=== PATIENT | male | born 1995 | race African-American/Black ===

== ENCOUNTER 2016-06-26 20:22 | Emergency (ER) | payer OTHER ==
[~2016-06-26] VITALS: Ht 185.4 cm; Wt 79.4 kg
[~2016-06-26 20:22] MED LIST: ULTRAM50 M1 PO
[2016-06-26 20:26] VITALS: BP 164/91
[2016-06-26] MEDS ORDERED: AUGMENTIN 875-1 EACH PO (20:41)
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
== END 2016-06-26 20:45 ==
LOC: ERH 20:22
DX: L03.114 Cellulitis of left upper limb (principal); Y04.1XXA Assault by human bite, initial encounter
CPT/HCPCS: J3490

== ENCOUNTER 2016-10-01 16:09 | Emergency (ER) | payer OTHER ==
[~2016-10-01] VITALS: Ht 185.4 cm; Wt 79.4 kg
[~2016-10-01 16:09] MED LIST changes: +AUGMENTIN 875-1 EACH PO
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
--- NOTE | 2016-10-01 17:45 | CT SCAN REPORT ---
EXAMINATION: NONCONTRAST HEAD CT NONCONTRAST CERVICAL SPINE CT INDICATION INFORMATION: Fall with loss of consciousness. Head strike. COMPARISON: None TECHNIQUE: Separate noncontrast CT examinations of the head and cervical spine were performed. Coronal and sagittal images were created for each examination at the technologist workstation. FINDINGS: Head: There is no evidence of acute intracranial hemorrhage or territorial infarction. No abnormal mass effect or midline shift is seen. Simmons to white matter differentiation is well preserved. No extra-axial fluid collections are identified. No hydrocephalus. No significant volume loss. There is no abnormal attenuation within the brain parenchyma. The osseous structures and soft tissues are normal. The mastoid air cells and visualized portions of the paranasal sinuses are well aerated. Cervical spine: There is anatomic alignment of the vertebral bodies and posterior elements. The atlantoaxial and atlantooccipital articulations are intact. Vertebral body heights and intervertebral disc spaces are maintained. No evidence of acute fracture. No prevertebral soft tissue swelling. Visualized portions of the lung apices are unremarkable. The thyroid gland is unremarkable. IMPRESSION: 1. No acute intracranial findings. 2. No cervical spine fracture or malalignment.
[2016-10-01 18:06] VITALS: BP 155/83
--- NOTE | 2016-10-01 18:44 | RADIOLOGY REPORT ---
EXAMINATION: Left shoulder, left elbow, left wrist and left hand. CLINICAL INFORMATION: Status post fall with left upper extremity pain. COMPARISON: None TECHNIQUE: Left shoulder 3 views. Left elbow 4 views. Left wrist 4 views. Left hand 3 views. FINDINGS: Left shoulder: The glenohumeral joint is intact. There is subtle lucency seen along the acromion on Y view which could be secondary to recent ossification of growth plate. If patient is tender in this region a CT could be obtained. However there is no soft tissue swelling seen. Left elbow: There is no visible acute fracture, dislocation or soft tissue abnormality. The anterior and posterior fat pad sign is normal. Left wrist: There is no visible acute fracture, dislocation or soft tissue abnormality. Left hand: There is no visible acute fracture or dislocation. No soft tissue swelling seen. IMPRESSION: Subtle lucency along the left acromion could be recent ossification of growth plate if patient is tender in this region a CT can be obtained. However there is no soft tissue swelling. The glenohumeral joint space is normal. Unremarkable left elbow exam. Unremarkable left wrist exam. Unremarkable left hand exam.
[2016-10-01] MEDS ORDERED: TRAMADOL HCL50 M1 PO (18:49)
== END 2016-10-01 19:21 ==
LOC: ERH 16:09
DX: S09.90XA Unspecified injury of head, initial encounter (principal); M79.602 Pain in left arm; M54.2 Cervicalgia; W11.XXXA Fall on and from ladder, initial encounter; Y93.9 Activity, unspecified; Y92.9 Unspecified place or not applicable
CPT/HCPCS: 73030-LT; 73080-LT; 73110-LT; 73130-LT; J0131

== ENCOUNTER 2016-10-23 11:46 | Emergency (ER) | payer OTHER ==
[~2016-10-23] VITALS: Ht 185.4 cm; Wt 77.1 kg
[~2016-10-23 11:46] MED LIST changes: +TRAMADOL HCL50 M1 PO
[2016-10-23] MEDS ORDERED: NAPROSYN500 M1 PO (12:14)
[2016-10-23] MEDS ORDERED: CYCLOBENZAPRINE5 M2 PO (12:14)
--- NOTE | 2016-10-23 12:14 | ED NECK/BACK PAIN COMPLAINT ---
History of Present Illness General Chief Complaint: General Adult Stated Complaint: PT IS HERE FOR HEADACHE AND LOWER BACK PAIN Source: patient Exam Limitations: no limitations Allergies Coded Allergies: mushroom (HIVES 10/01/16) soap (CASSANDRA SOAP HIVES 10/01/16) Triage Note: PT STATES HE HAS HAD REEVES AND LOWER BACK PAIN FOR THE PAST 3 DAYS. PT HAS NOT TAKEN ANYTHING FOR THE PAIN Triage Nurses Notes Reviewed? yes HPI: This patient is a 21-year-old male who presented to the emergency department today for evaluation of headache and lower back pain. The patient reported that approximately 3 weeks ago he fell off a ladder. At that time he had a CT scan of the head and neck which was unremarkable. He reported that 3 days ago he started getting intermittent headaches that get up to a 7 out of 10, are throbbing, and, "all over my head." He reports that he only at night. The patient also reported that 3 days ago he started having lower back pain across his lower back and worse at night. This pain gets up to an 8 out of 10, is sharp, nonradiating. He denied any numbness or tingling in his extremities. Pain has been intermittent. The patient did not try taking any medication for the pain. He denied any strenuous activity or heavy lifting. He denied any bowel or bladder incontinence. No saddle paresthesia. He denied any fevers, chills, chest pain, difficult breathing, abdominal pain, nausea, vomiting, or any urinary symptoms. (SINDI GORE,CEZAR) Vital Signs & Intake/Output Vital Signs & Intake/Output ED Intake and Output 10/24 0000 05 1200 Intake Total Output Total Balance Patient 170 lb Weight Weight Reported by Patient Measurement Method Reconcile Medications Cyclobenzaprine HCl 5 MG TABLET 1 TAB PO TIDPRN PRN muscle spasms Naproxen (Naprosyn) 500 MG TABLET 1 TAB PO BID PRN pain and inflammation (NIK PALMA,KOLBY) Past History Travel History Traveled to [place] past 21 day No Medical History Any Pertinent Medical History? 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 No (CEZAR DELONG PA-C) Review of Systems Review of Systems Constitutional: Reports: no symptoms. Eyes: Reports: no symptoms. Ears, Nose, Throat, Mouth: Reports: no symptoms. Respiratory: Reports: no symptoms. Cardiovascular: Reports: no symptoms. Gastrointestinal/Abdominal: Reports: no symptoms. Musculoskeletal: Reports: see HPI. Skin: Reports: no symptoms. Neurological/Psychological: Reports: see HPI. All Other Systems: Reviewed and Negative (CEZAR DELONG PA-C) Physical Exam Physical Exam Neck: normal inspection, supple, full range of motion, normal alignment, no midline tenderness Comments: Well-developed well-nourished person in no acute distress HEENT: Normal EENT exam, head normocephalic/atraumatic PERRLA bilaterally Back: Normal gait. Good straight leg raise bilaterally. No midline tenderness and mild right-sided lumbar paraspinal musculature tenderness Cardiovascular: Regular rate and rhythm with no murmurs Respiratory: No respiratory distress. Speaking in full sentences Extremity: Normal and equal pulses Neuro: Alert oriented x3, motor sensory normal, cranial nerves II through XII grossly intact. No focal neurologic deficits Skin: No appreciable rash on exposed skin, skin is warm and dry. Psych: Mood and affect is normal (CEZAR DELONG PA-C) Progress Differential Diagnosis: cauda equina syn, herniated disc, myofascial strain, pyelo/UTI, sciatica, spinal cord inj, thoracic outlet syn, T/L spine injury, ureterolithiasis, migraine headache, concussion, cluster headache, tension headache, intracranial hemorrhage Plan of Care: This patient is a 21-year-old male who presented to the emergency department today for evaluation of intermittent headaches and intermittent lower back pain over the last 3 days. He is asymptomatic at this time. Unremarkable physical examination with no focal neurologic deficits. Back pain reproducible with palpation over the lumbar paraspinal musculature on the right with muscular spasm noted. Likely muscular strain and headache. Patient is stable for outpatient symptomatic management. (CEZAR DELONG PA-C) Departure Departure Disposition: HOME OR SELF CARE Condition: Stable Clinical Impression Primary Impression: Low back strain Qualifiers: Encounter type: initial encounter Qualified Code: S39.012A - Strain of muscle, fascia and tendon of lower back, initial encounter Secondary Impressions: Headache Qualifiers: Headache type: unspecified Headache chronicity pattern: unspecified pattern Intractability: not intractable Qualified Code: R51 - Headache Referrals: ARINA TEE (PCP/Family) Additional Instructions: Take Flexeril as prescribed for muscle relaxation. Take naproxen as prescribed for pain and inflammation. Rest and stay hydrated. Return for any worsening symptoms or concerns. Please follow-up with your primary care physician. Departure Forms: Customer Survey General Discharge Information Prescriptions: Current Visit Scripts Cyclobenzaprine HCl 1 TAB PO TIDPRN PRN muscle spasms #10 TAB Naproxen (Naprosyn) 1 TAB PO BID PRN pain and inflammation #10 TAB (CEZAR DELONG PA-C) PA/BRASS SORTER Co-Sign Statement Statement: ED Attending supervision documentation- [] I saw and evaluated the patient. I have also reviewed all the pertinent lab results and diagnostic results. I agree with the findings and the plan of care as documented in the PA's/BRASS SORTER's documentation. x I have reviewed the ED Record and agree with the PA's/BRASS SORTER's documentation. [] Additions or exceptions (if any) to the PAs/BRASS SORTER's note and plan are summarized below: [] (NIK PALMA,KOLBY)
[2016-10-23 12:26] VITALS: BP 138/92
== END 2016-10-23 12:32 ==
LOC: ERH 11:46
DX: S39.012A Strain of muscle, fascia and tendon of lower back, initial encounter (principal); R51 Headache; W11.XXXA Fall on and from ladder, initial encounter; Y92.9 Unspecified place or not applicable; Y93.9 Activity, unspecified